=== PATIENT | male | born 1965 | race Caucasian/White ===

== ENCOUNTER 2023-10-09 19:59 | Emergency (ER) | payer SELFPAY ==
[2023-10-09 20:10] VITALS: BP 141/91; PULSE 92; RESP 18; TEMP 98; BMI 26.7
[2023-10-09] MEDS ORDERED: ERYTHROMYCIN 0.5% OPHTHALMIC OINTMENT 3.5 GM TUBE ONE ×2 (20:34→20:37)
[2023-10-09] MEDS: ERYTHROMYCIN 0.5% OPHTHALMIC OINTMENT 3.5 GM TUBE OU STA (20:38)
== END 2023-10-09 20:38 | disposition home or self-care (01) ==
LOC: JERFT 19:59
DX: H10.33 Unspecified acute conjunctivitis, bilateral (principal)
CPT/HCPCS: 99283-25

== ENCOUNTER 2024-02-12 06:48 | Emergency (ER) | payer SELFPAY ==
[2024-02-12 06:54] VITALS: BP 122/81; PULSE 74; TEMP 97.7; BMI 25.1
[2024-02-12] MEDS ORDERED: ALBUTEROL SO4 2.5/IPRATROPIUM 0.5 INH SOL 3 ML VIAL.NEB. NEB ONE ×2 (06:54→07:33)
[2024-02-12] MEDS ORDERED: DEXAMETHASONE 4 MG TABLET (FP) PO ONE (07:57)
[2024-02-12] MEDS ORDERED: DEXAMETHASONE 4 MG TABLET (FP) ONE (08:00)
[2024-02-12] MEDS ORDERED: ALBUTEROL SO4 0.083% IH SOL 2.5 MG/3 ML VIAL.NEB. NEB ONE (08:07)
[2024-02-12] MEDS: ALBUTEROL SULFATE 0.021% (0.63 MG/3 ML) VIAL.NEB NEB ONE (08:09)
[2024-02-12] MEDS: ALBUTEROL SO4 HFA INHALER IH PRN (08:09)
[2024-02-12] MEDS: DEXAMETHASONE 4 MG TABLET (FP) PO ONE (08:09)
[2024-02-12 08:28] VITALS: RESP 18
== END 2024-02-12 08:35 | disposition home or self-care (01) ==
LOC: JER 06:48
PROC: 3E0F7GC Introduction of Other Therapeutic Substance into Respiratory Tract, Via Natural or Artificial Opening (ICD-10-PCS; principal; 2024-02-12)
DX: J45.901 Unspecified asthma with (acute) exacerbation (principal); R06.02 Shortness of breath; R05.9 Cough, unspecified
CPT/HCPCS: 93005; 93010; 99283-25

== ENCOUNTER 2024-03-03 19:34 | Emergency (ER) | payer SELFPAY ==
[2024-03-03 19:40] VITALS: BP 149/90; TEMP 98.3; BMI 25.1
[2024-03-03] MEDS ORDERED: ALBUTEROL SO4 2.5/IPRATROPIUM 0.5 INH SOL 3 ML VIAL.NEB. NEB ONE ×2 (19:53→20:32)
[2024-03-03] MEDS ORDERED: DEXAMETHASONE SOD PHOSPHATE 10 MG/1 ML VIAL ONE (20:30)
[2024-03-03] MEDS: DEXAMETHASONE SOD PHOSPHATE 10 MG/1 ML VIAL IVPUSH ONE (20:41)
[2024-03-03] MEDS: ALBUTEROL SO4 2.5/IPRATROPIUM 0.5 INH SOL 3 ML VIAL.NEB. NEB SCH (20:42)
[2024-03-03] MEDS: MAGNESIUM SULF 50% (8.12 MEQ/2 ML-1 GM VIAL) IVPB ONE (20:42)
[2024-03-03] MEDS ORDERED: MAGNESIUM 1GM/D5W - 1 GM/100 ML IVPB IVPB ONE (20:48)
[2024-03-03 21:21] LABS: HIV INTERPRETATION NEGATIVE (NEGATIVE)
[2024-03-03] MEDS ORDERED: ALBUTEROL SO4 HFA INHALER IH ONE (21:47)
[2024-03-03] MEDS: ALBUTEROL SO4 HFA INHALER IH ONE (21:50)
[2024-03-03 21:51] VITALS: PULSE 74; RESP 18
== END 2024-03-03 21:57 | disposition home or self-care (01) ==
LOC: JER 19:34
PROC: 3E033GC Introduction of Other Therapeutic Substance into Peripheral Vein, Percutaneous Approach (ICD-10-PCS; principal; 2024-03-03)
PROC: 3E033GC Introduction of Other Therapeutic Substance into Peripheral Vein, Percutaneous Approach (ICD-10-PCS; 2024-03-03)
PROC: 3E0F7GC Introduction of Other Therapeutic Substance into Respiratory Tract, Via Natural or Artificial Opening (ICD-10-PCS; 2024-03-03)
DX: R06.02 Shortness of breath (principal); R07.89 Other chest pain; J45.901 Unspecified asthma with (acute) exacerbation; Z87.891 Personal history of nicotine dependence
CPT/HCPCS: 36415; 71045-TC-FY; 86803; 87389; 99284-25; J1100

== ENCOUNTER 2024-03-15 08:39 | Emergency (ER) | payer SELFPAY ==
[2024-03-15 08:48] VITALS: TEMP 97.6; BMI 25.1
[2024-03-15] MEDS ORDERED: ALBUTEROL SO4 2.5/IPRATROPIUM 0.5 INH SOL 3 ML VIAL.NEB. NEB ONE (08:57)
[2024-03-15] MEDS: ALBUTEROL SO4 2.5/IPRATROPIUM 0.5 INH SOL 3 ML VIAL.NEB. NEB SCH (09:22)
[2024-03-15] MEDS ORDERED: methylPREDNISolone NA SUCC 125 MG/2 ML VIAL ONE (10:00)
[2024-03-15] MEDS: methylPREDNISolone NA SUCC 125 MG/2 ML VIAL IVPB ONE (10:09)
[2024-03-15] MEDS: ALBUTEROL SO4 HFA INHALER IH ONE (11:13)
[2024-03-15] MEDS ORDERED: ALBUTEROL SO4 HFA INHALER IH ONE (11:13)
[2024-03-15 11:24] VITALS: BP 112/67; PULSE 73; RESP 20
== END 2024-03-15 11:20 | disposition home or self-care (01) ==
LOC: JER 08:39
PROC: 3E033GC Introduction of Other Therapeutic Substance into Peripheral Vein, Percutaneous Approach (ICD-10-PCS; principal; 2024-03-15)
PROC: 3E0F7GC Introduction of Other Therapeutic Substance into Respiratory Tract, Via Natural or Artificial Opening (ICD-10-PCS; 2024-03-15)
DX: J45.21 Mild intermittent asthma with (acute) exacerbation (principal); R06.02 Shortness of breath; Z20.822 Contact with and (suspected) exposure to COVID-19
CPT/HCPCS: 0241U-QW; 99284-25